=== PATIENT | female | born 1980 | race Caucasian/White ===

== ENCOUNTER 2022-09-11 12:24 | Emergency (ER) | payer OTHER ==
[~2022-09-11] VITALS: Ht 170.1 cm; Wt 61.2 kg
[~2022-09-11 12:24] MED LIST: METR500T PO; PHEN200T27 PO
--- NOTE | 2022-09-11 12:57 | ED Back Pain ---
General Stated Complaint: UPPER BACK PAIN History of Present Illness Date Seen by Provider: Sep 11, 2022 Time Seen by Provider: 12:50 Initial Comments 41-year-old female is here with complaints of right-sided shoulder and posterior right side of neck and upper back pain which began today morning around 2 AM, waking her up from sleep. Denies headache, fever, trauma, falls, injuries. Patient took an old prescription of her 's of Flexeril which is about 3 years old, and Aleve at 9 AM. Patient is still having pain. Allergies and Home Medications Allergies Coded Allergies: No Known Drug Allergies (Unverified , 09/11/22) Patient Home Medication List Home Medication List Reviewed: Yes Review of Systems Constitutional: no symptoms reported EENTM: no symptoms reported Respiratory: no symptoms reported Cardiovascular: no symptoms reported Gastrointestinal: no symptoms reported Genitourinary: no symptoms reported Musculoskeletal: back pain Skin: no symptoms reported Psychiatric/Neurological: No Symptoms Reported Physical Exam Vital Signs Vital Signs - First Documented 09/11/22 12:40 Temp 37.6 Pulse 60 Resp 16 B/P (MAP) 112/72 (85) Pulse Ox 100 O2 Delivery Room Air Capillary Refill : Height, Weight, BMI Height: '" Weight: lbs. oz. kg; BMI Method: General Appearance: Mild Distress HEENT: PERRL/EOMI, Normal ENT Inspection Neck: Full Range of Motion, Normal Inspection, Non Tender, Supple Back: Normal Inspection, No Vertebral Tenderness Extremity: Normal Inspection, Normal Range of Motion, Other (Right-sided shoulder: Tenderness present over the trap muscles. No muscle spasm.) Neurologic/Psychiatric: Alert, Oriented x3, No Motor/Sensory Deficits, Normal Mood/Affect Skin: Normal Color Progress/Results/Core Measures Results/Orders My Orders Orders - HARRY RUSSELL MD Cervical Spine 3 View Or Less (09/11/22 12:57) Thoracic Spine 2 View Only (09/11/22 12:57) Ketorolac Injection (Toradol Injection) (09/11/22 14:30) Vital Signs/I&O 09/11/22 12:40 Temp 37.6 Pulse 60 Resp 16 B/P (MAP) 112/72 (85) Pulse Ox 100 O2 Delivery Room Air Progress Progress Note : Progress Note 1. RIGHT SHOULDER STRAIN: - XR CERVICAL/ THORACIC : no acute findings except degeneration and some height loss between C5-C7 - Toradol 30mg im STAT -Advised Aleve capsules 440 mg every 12 hours, with Tylenol 650 mg every 4 hours, heat application, [id number] Lidoderm patch -Follow-up with PCP within the next 3 to 7 days -No heavy lifting -The patient was seen in the ED, and treated appropriately to presentation at a specific point in time. Patient is informed that there is a possibility that disease and illness can evolve and change in acuity rapidly or slowly after patient is discharged from the ER. Precautionary advice given to the patient for immediate return to ER if symptoms worsen or do not resolve, and to seek emergency care sooner rather than later. Pt also advised on the importance of PCP follow up and compliance with management and follow up plan with PCP and/or specialist, as this is part of the management plan. Pt verbally expressed understanding. Departure Impression Primary Impression: Right shoulder strain Qualified Codes: S46.911A - Strain of unspecified muscle, fascia and tendon at shoulder and upper arm level, right arm, initial encounter Disposition: 01 HOME, SELF-CARE Condition: Stable Departure-Patient Inst. Referrals: NO,LOCAL PHYSICIAN (PCP) Primary Care Physician Patient Instructions: Muscle Strain ED, Muscle Strain Add. Discharge Instructions: -Advised Aleve capsules 440 mg every 12 hours, with Tylenol 650 mg every 4 hours, heat application, [id number] Lidoderm patch -Follow-up with PCP within the next 3 to 7 days -No heavy lifting HARRY RUSSELL MD Sep 11, 2022 12:57
--- NOTE | 2022-09-11 13:56 | Diagnostic Imaging Report ---
HISTORY: Neck pain and back pain. TECHNIQUE: Three views of the cervical spine. COMPARISON: None. FINDINGS: There is mild right convex curvature of the cervical spine, which can be positional. There is no spondylolisthesis. Vertebral body heights are preserved. No acute fracture is seen. There may be mild disc height loss at C5-C6 and C6-C7. There is mild facet arthropathy. C1-C2 alignment appears normal although partially obscured by overlapping structures. Prevertebral soft tissues appear normal. IMPRESSION: 1. Mild degenerative changes in the cervical spine with no acute fracture seen. Dictated by: Dictated on workstation # [id number]
--- NOTE | 2022-09-11 13:59 | Diagnostic Imaging Report ---
INDICATION: Back pain. AP and lateral views of the thoracic spine are obtained FINDINGS: Thoracic vertebrae are normal in height and alignment. There is no fracture or subluxation. There is question of very slight dextroscoliotic change versus positioning. IMPRESSION: No acute abnormality in the thoracic spine. Dictated by: Dictated on workstation # [id number]
[2022-09-11] MEDS ORDERED: KETOROLAC 30 MG/ML VIAL IM ONE (14:30)
[2022-09-11 14:52] VITALS: BP 112/72
== END 2022-09-11 14:47 | disposition home or self-care (01) ==
LOC: ER FS 12:27
DX: S46.911A Strain of unspecified muscle, fascia and tendon at shoulder and upper arm level, right arm, initial encounter (principal); X58.XXXA Exposure to other specified factors, initial encounter
CPT/HCPCS: 72040; 72070